=== PATIENT | male | born 1955 | race African-American/Black ===

== ENCOUNTER 2017-04-13 14:15 | Emergency (ER) | payer MEDICARE ==
[~2017-04-13] VITALS: Ht 185.4 cm; Wt 113.5 kg
[2017-04-13 14:17] VITALS: BP 137/66; PULSE 49; RESP 18; TEMP 98.2; O2SAT 98
--- NOTE | 2017-04-13 14:26 | PD ---
Physical Exam Time Seen by Provider: 14:23 Narrative 61yo M c/o SOB and needing dialysis. Here form [facility]. Missed dialysis on Monday. Patient seen in triage. VS reviewed. Awaiting bed placement. Data Data Last Documented VS Vital Signs Date Time Temp Pulse Resp B/P Pulse Ox O2 Delivery O2 Flow Rate FiO2 04/13/17 14:17 98.2 49 18 137/66 98 MDM Supervised Visit with PETRONA: Rosanne Farley Apr 13, 2017 14:26
[2017-04-13] MEDS ORDERED: BUPR75TA PO (16:49)
[2017-04-13] MEDS ORDERED: ALPR1TAB3 PO (16:49)
[2017-04-13] MEDS ORDERED: DICL75TA PO (16:49)
[2017-04-13] MEDS ORDERED: ATEN100T PO (16:49)
--- NOTE | 2017-04-13 18:24 | PD ---
HPI Chief Complaint: Medical Clearance Time Seen by Provider: 16:40 Travel History International Travel<30 days: No Contact w/Intl Traveler<30days: No Traveled to known affect area: No History of Present Illness HPI This patient is visiting from [place]. He is a dialysis patient on Monday and Monday. He skipped Monday and came here today CVA. Dialysis through the emergency room. He has no symptoms and feels fine. Symptom Severity is mild PFSH Past Medical History Cardiovascular Problems: Yes High Cholesterol: Yes Dialysis: Yes Diminished Hearing: No Hypertension: Yes Respiratory: Yes Myocardial Infarction: Yes Past Surgical History Other Surgery: Yes (fistula LFA) Social History Alcohol Use: No Tobacco Use: No Substance Use: No Allergies-Medications (Allergen,Severity, Reaction): Coded Allergies: No Known Allergies (Unverified , 04/13/17) Reported Meds & Prescriptions Reported Meds & Active Scripts Active Reported Bupropion HCl 75 Mg Tab 75 Mg PO BID Atenolol 100 Mg Tab 100 Mg PO BID Alprazolam 1 Mg Tab 1 Mg PO HS PRN Diclofenac Sodium DR (Diclofenac Sodium) 75 Mg Tabdr 75 Mg PO BID Review of Systems General / Constitutional: No: Fever HENT: No: Headaches Cardiovascular: No: Chest Pain or Discomfort Physical Exam Narrative RESPIRATORY: Respiratory effort unlabored, no retractions or use of accessory muscles. Breath sounds are clear and symmetric. CARDIOVASCULAR: Regular rate and rhythm without murmur. Extremities showed no edema or varicosities. Data Data Last Documented VS Vital Signs Date Time Temp Pulse Resp B/P Pulse Ox O2 Delivery O2 Flow Rate FiO2 04/13/17 14:17 98.2 49 18 137/66 98 MDM Medical Decision Making Medical Screen Exam Complete: Yes Emergency Medical Condition: Yes Medical Record Reviewed: Yes Differential Diagnosis Noncompliance with dialysis, malingering Narrative Course I have reviewed the patient's electronic medical record. Patient has no symptoms. No indication for emergent dialysis. mine manager met with him to discuss the proper way to set up dialysis. I went back to talk to the patient but he had already snuck out of the ER prior to being discharged Diagnosis Primary Impression: Non-compliance Patient Instructions: General Instructions Departure Forms: Tests/Procedures Additional Instructions: The patient was advised to follow up with their physician and return if they worsen. Med/Other Pt SpecificInfo: Other Disposition: 01 DISCHARGE HOME Condition: Stable Will Mcmahon MD Apr 13, 2017 18:24
== END 2017-04-13 18:42 | disposition home or self-care (01) ==
LOC: NEPE 14:15
DX: Z71.1 Person with feared health complaint in whom no diagnosis is made (principal); Z91.15 Patient's noncompliance with renal dialysis; E78.00 Pure hypercholesterolemia, unspecified; I10 Essential (primary) hypertension; I25.2 Old myocardial infarction
CPT/HCPCS: 99282